=== PATIENT | female | born 1945 | race Caucasian/White ===

== ENCOUNTER → 2017-12-02 | Outpatient (CLI) | payer MEDICARE ==
[~2017-12-02] MED LIST: REGADENOSON 0.4 MG/5 ML SYRINGE IV ONE
--- NOTE | 2017-12-02 11:05 | P.STRESS ---
- Stress Test Note Stress Test Results/Findings: Exam Performed: NM stress lexiscan cardiolite Exam Date: 12/02/17 Reason for Exam: ABN EKG Height: 5 ft 6 in Weight: 90.718 kg Protocol: Yessy Scan Stage: na Duration of Exercise: na Resting Heart Rate: 66 Resting Blood Pressure: 134/86 Maximum Achieved Heart Rate: 66 Maximum Achieved Blood Pressure: 149/70 85% PMHR: na 100% PMHR: na METS: na Technologist Comment: Stress Test Results/Findings: This is a 72-year-old female with history of diabetes. Family history being evaluated for symptoms of chest pain and shortness of breath and also palpitations. Stress data: Baseline EKG showed sinus rhythm. Blood pressure at rest is 134/ 86 with pulse rate of 66. A standard dose of Lexiscan was infused EKGs taken during and after infusion did not reveal any changes of ischemia. Final impression: #1. Negative Lexiscan stress test #2. Report on the nuclear images to begin by the radiologist
--- NOTE | 2017-12-02 11:22 | ECHOF ---
Referral Reason:R94.31 Abnormal ekg MEASUREMENTS -------- HEIGHT: 167.6 cm WEIGHT: 90.7 kg BP: IVSd: 1.2 cm (0.6 - 1.1) LVIDd: 3.3 cm (3.9 - 5.3) LVPWd: 1.4 cm (0.6 - 1.1) IVSs: 1.7 cm LVIDs: 1.9 cm LVPWs: 2.0 cm Ao Diam: 3.2 cm (2.0 - 3.7) AV Cusp: 1.6 cm (1.5 - 2.6) LA Diam: 3.2 cm (2.7 - 3.8) MV EXCURSION: 15.488 mm (> 18.000) MV EF SLOPE: 95 mm/s (70 - 150) EPSS: 0.6 cm MV E Jose Enrique: 0.89 m/s MV DecT: 186 ms MV A Jose Enrique: 1.20 m/s MV E/A Ratio: 0.75 AR PHT: 339 ms RAP: 5.00 mmHg RVSP: 10.65 mmHg FINDINGS -------- Sinus rhythm. This was a technically difficult study with suboptimal views. The left ventricular size is normal. There is mild concentric left ventricular hypertrophy. Overa ll left ventricular systolic function is normal with, an EF between 55 - 60 %. The right ventricle is normal in size and function. The left atrium is normal in size. The right atrium is normal in size. Trace amount of aortic regurgitation. There is trace mitral regurgitation. Trace tricuspid regurgitation present. The right ventricular systolic pressure, as measured by Dopp ler, is 10.65mmHg. Pulmonic valve appears structurally normal. The aortic root size is normal. The pericardium is normal. CONCLUSIONS -------- 1. Sinus rhythm. 2. This was a technically difficult study with suboptimal views. 3. The left ventricular size is normal. 4. There is mild concentric left ventricular hypertrophy. 5. Overall left ventricular systolic function is normal with, an EF between 55 - 60 %. 6. The right ventricle is normal in size and function. 7. The left atrium is normal in size. 8. The right atrium is normal in size. 9. Trace amount of aortic regurgitation. 10. There is trace mitral regurgitation. 11. Trace tricuspid regurgitation present. 12. The right ventricular systolic pressure, as measured by Doppler, is 10.65mmHg. 13. Pulmonic valve appears structurally normal. 14. The aortic root size is normal. 15. The pericardium is normal. LPN PER DIEM: Ramila Reece RDCS
--- NOTE | 2017-12-02 17:01 | NM ---
EXAMINATION TYPE: NM stress lexiscan cardiolite DATE OF EXAM: 12/02/2017 COMPARISON: NONE HISTORY: Abnormal EKG TECHNIQUE: After the intravenous administration of 10.49 mCi Tc 99m Sestamibi - Cardiolite resting S PECT images acquired 45 minutes post injection. The patient received 0.4mg Lexiscan, 25.1 mCi Tc 99m Sestamibi - Stress images obtained [address] injection FINDINGS: Some very subtle diminished radiotracer on stress images may be within the inferior wall. T his is more symmetrical distribution on the resting images. Polar maps do not identify this area. The re is a reported defect on Polar maps at the cardiac apex. This is not identified on the SPECT imagin g Correlate with the patient's reported EKG changes. Ejection fraction of 71% is normal. Some septal wall dyskinesia is present. Some mild dyskinesia card iac apex may be present. IMPRESSION: 1. Polar maps suggest a reversible defect at the cardiac apex not identified on SPECT imaging and SPE CT imaging suggests subtle diminished radiotracer along the inferior wall on stress images not matche d on resting images suggesting very mild stress-induced ischemic change. Correlate with the patient's reported EKG changes. 2. Some dyskinesia of the septal wall is noted. Ejection fraction remains normal at 71%
== END | disposition home or self-care (01) ==
LOC: RADNMMAIN 07:25
PROVIDERS: ATTEND Family Medicine
DX: I51.89 Other ill-defined heart diseases (principal); R94.31 Abnormal electrocardiogram [ECG] [EKG]
CPT/HCPCS: 93017; 78452; C8929; A9500; J2785; Q9950; 93306

== ENCOUNTER → 2018-05-05 | Outpatient (CLI) | payer MEDICARE ==
[2018-05-05 11:23] LABS: HGB 12.8 gm/dL (11.4-16.0); MCH 32.2 pg (25.0-35.0); MCV 100.8 fL (80.0-100.0); Mean Platelet Volume 6.8; Platelet Count 242 k/uL (150-450); RBC 3.97 m/uL (3.80-5.40); RDW 12.6 % (11.5-15.5); WBC 6.8 k/uL (3.8-10.6)
[2018-05-05 11:30] LABS: Anion Gap 11 mmol/L; Blood Urea Nitrogen 20 mg/dL (7-17); Carbon Dioxide 27 mmol/L (22-30); Chloride 102 mmol/L (98-107); Potassium 4.8 mmol/L (3.5-5.1); Sodium 140 mmol/L (137-145)
== END | disposition home or self-care (01) ==
LOC: LABPAT 10:31
PROVIDERS: ATTEND Internal Medicine Cardiovascular Disease
DX: Z01.812 Encounter for preprocedural laboratory examination (principal); E78.2 Mixed hyperlipidemia; E11.9 Type 2 diabetes mellitus without complications; I25.10 Atherosclerotic heart disease of native coronary artery without angina pectoris
CPT/HCPCS: 36415; 80051; 82565; 84520; 85027

== ENCOUNTER → 2018-05-12 | Day surgery (SDC) | payer MEDICARE ==
[2018-05-08 16:14] VITALS: BMI 32.5
[~2018-05-12] MED LIST changes: +ALPRAZolam 0.25 MG TAB PO PRN; +ALPRAZolam 0.5 MG TAB PO PRN; +ASPIRIN 325 MG TAB PO STA; +ATORVASTATIN 80 MG TAB PO STA; +NITROGLYCERIN SL TABS 0.4 MG TAB SUBLINGUAL PRN; -REGADENOSON 0.4 MG/5 ML SYRINGE IV ONE; +SODIUM CHLORIDE 0.9% 1,000 ML IV ONE; +SODIUM CHLORIDE 0.9% 1,000 ML in EMPTY BAG 1 BAG IV ONE
[2018-05-12 09:43] LABS: Glucose,Whole Blood 134 mg/dL (75-99)
[2018-05-12 10:02] VITALS: BP 158/70; PULSE 77; RESP 16; TEMP 97.8
== END | disposition home or self-care (01) ==
LOC: CATHCVL 08:51
PROVIDERS: ATTEND Internal Medicine Cardiovascular Disease
DX: I25.10 Atherosclerotic heart disease of native coronary artery without angina pectoris (principal); E78.2 Mixed hyperlipidemia; E11.9 Type 2 diabetes mellitus without complications; Z53.8 Procedure and treatment not carried out for other reasons

== ENCOUNTER 2018-05-15 07:33 | Day surgery (SDC) | payer MEDICARE ==
[2018-05-12 13:44] VITALS: BMI 32.5
[~2018-05-15 07:33] MED LIST changes: -SODIUM CHLORIDE 0.9% 1,000 ML IV ONE
[2018-05-15 08:05] VITALS: TEMP 97.5
[2018-05-15 08:14] LABS: Glucose,Whole Blood 149 mg/dL (75-99)
[2018-05-15] MEDS ORDERED: fentaNYL (PF) 50 MCG/ML 2 ML AMP ONE (08:37)
[2018-05-15] MEDS ORDERED: LIDOCAINE 1% INJ 10MG/ML (20 ML MDV) ONE (08:37)
[2018-05-15] MEDS ORDERED: VERAPAMIL 2.5 MG/ML 2 ML AMP ONE (08:40)
[2018-05-15] MEDS ORDERED: MIDAZOLAM 2 MG/2 ML VIAL IV ONE (09:00)
[2018-05-15] MEDS: fentaNYL (PF) 50 MCG/ML 2 ML AMP IV ONE ×2 (09:00→09:26)
[2018-05-15] MEDS ORDERED: LIDOCAINE 1% INJ 10MG/ML (20 ML MDV) SQ ONE (09:02)
[2018-05-15] MEDS ORDERED: HEPARIN SODIUM 1,000 UN/ML (10ML VL) ONE (09:05)
[2018-05-15] MEDS: VERAPAMIL SYRINGE (5 MG/10 ML) INTRAARTER ONE ×2 (09:11→09:18)
[2018-05-15] MEDS ORDERED: IOPAMIDOL-370 150ML BTL INJ ONE (09:18)
--- NOTE | 2018-05-15 09:43 | P.CARDCATH ---
Date of Procedure: 05/15/18 Preoperative Diagnosis: This is a 72-year-old female with history of hypercholesterolemia and diabetes who was referred for evaluation of chest pains and the possible positive stress test. Because of risk factors patient is advised to have a cardiac catheterization for definitive diagnosis. Patient and family were explained the risks and benefits of the procedure. Postoperative Diagnosis: Calcified coronary system without any significant obstructive coronary artery disease Procedure(s) Performed: Left heart catheterization without left ventriculography Description of Procedure: HISTORY: This is a 72-year-old female with history of diabetes and hypercholesterolemia who had a stress test which was suggestive of ischemia. Patient is advised to have a cardiac catheterization for definitive diagnosis. CONSENT:I have discussed the risks, benefits and alternative therapies for the above-mentioned procedure and for both sedation/analgesia as well as necessary blood product administration, if indicated, as they pertain to this patient. The patient has indicated understanding and acceptance of the risks and procedures discussed. PROCEDURE: Patient was brought to the lab in a fasting state. Patient was given some IV sedation. The right wrist is infiltrated with lidocaine and right radial artery was entered using Seldinger technique. A 6-[place] catheter was left in place and selective coronary arteriography was performed. Patient tolerated the procedure well. TR band was applied for hemostasis. No immediate complications were noted and patient was transferred to [facility] in a stable condition Conscious Sedation: Versed 1mg Fentanyl 50 g Duration 20minutes HEMODYNAMICS: The aortic pressure is 130/70. Left ankle end-diastolic pressure is about 12-16. There was no gradient across the aortic SELECTIVE CORONARY ARTERIOGRAPHY: LEFT MAIN: short and divides into left anterior descending and circumflex coronary artery immediately. Free of any occlusive disease THE LEFT ANTERIOR DESCENDING CORONARY ARTERY: This is a good caliber vessel giving rise to small diagonal and septal branches. The LAD and branches are free of occlusive disease. The LAD is tortuous in its course. There is heavy calcification of the proximal LAD THE LEFT CIRCUMFLEX AND IS CORONARY ARTERY: This is a good caliber vessel giving rise to good-sized OM branch. The circumflex and branches are free of occlusive disease THE RIGHT CORONARY ARTERY: This is a good caliber vessel and dominant in distribution, giving rise to PDA and PLV. There is also heavy calcification of the proximal and mid right coronary artery. No Sigmund obstructive disease noted LEFT VENTRICULOGRAPHY: On performed FINAL IMPRESSION: Calcified common system especially involving the LAD and right coronary artery. No Sigmund obstructive disease noted PLAN: Maximum medical therapy and risk factor modification PROGNOSIS: Fair
[2018-05-15] MEDS ORDERED: RX INFO: IV CONTRAST WAS GIVEN 1 EACH MISC MISCELLANE PRN (09:54)
[2018-05-15] MEDS ORDERED: SUMAtriptan SUCCINATE 50 MG TAB PO PRN (09:57)
[2018-05-15] MEDS ORDERED: HYDROcodone/APAP 10-325MG 1 EACH TAB PO PRN (09:57)
[2018-05-15] MEDS ORDERED: NYSTAT-TRIAMCIN 100,000-0.1 UNIT/GM-% CREAM 30 GM TUBE TOPICAL PRN (09:57)
[2018-05-15] MEDS ORDERED: SODIUM CHLORIDE 0.9% 1,000 ML IV SCH (10:00)
[2018-05-15 11:28] VITALS: BP 128/66; PULSE 60; RESP 16
[2018-05-15] MEDS ORDERED: NYSTATIN 100,000UNIT/GM CREAM 30 GM TUBE TOPICAL PRN (13:14)
[2018-05-15] MEDS ORDERED: TRIAMCINOLONE 0.1% CREAM 80 GM TUBE TOPICAL PRN (13:15)
[2018-05-15] MEDS ORDERED: ASPIRIN 81 MG PO SCH (21:00)
[2018-05-16] MEDS ORDERED: CHOLECALCIFEROL 1,000 UNIT TAB PO SCH (09:00)
[2018-05-16] MEDS ORDERED: CALCIUM CARB-VIT D 500MG-200UN 1 EACH TAB PO SCH (09:00)
[2018-05-16] MEDS ORDERED: MULTIVITAMINS, THERA 1 EACH TAB PO SCH (12:00)
== END 2018-05-15 13:27 | disposition home or self-care (01) ==
LOC: CATHCVL 07:33
PROVIDERS: ATTEND Internal Medicine Cardiovascular Disease
DX: I25.10 Atherosclerotic heart disease of native coronary artery without angina pectoris (principal); I25.84 Coronary atherosclerosis due to calcified coronary lesion; I10 Essential (primary) hypertension; E11.9 Type 2 diabetes mellitus without complications; E78.00 Pure hypercholesterolemia, unspecified; E78.5 Hyperlipidemia, unspecified; Z79.84 Long term (current) use of oral hypoglycemic drugs; Z79.82 Long term (current) use of aspirin; Z79.899 Other long term (current) drug therapy; Z88.0 Allergy status to penicillin; Z91.048 Other nonmedicinal substance allergy status
CPT/HCPCS: 93458; C1769; C1894; J2250; J2001; J3010; J1644; Q9967

== ENCOUNTER 2020-07-21 07:50 | Emergency (ER) | payer MEDICARE ==
[2020-07-21 07:54] VITALS: BP 135/68; PULSE 100; RESP 20; TEMP 97.7
[2020-07-21] MEDS ORDERED: HYDROmorphone 1 MG/ML 1 ML SYRINGE IM STA (08:17)
[2020-07-21] MEDS ORDERED: methylPREDNISolone SOD SUCCI 125 MG/2 ML VIAL IM ONE (08:17)
--- NOTE | 2020-07-21 08:21 | ED ---
General Adult HPI - General Chief complaint: Extremity Problem,Nontraumatic Stated complaint: trouble walking Time Seen by Provider: 07/21/20 07:50 Source: patient, RN notes reviewed, old records reviewed Mode of arrival: wheelchair Limitations: no limitations - History of Present Illness Initial comments: This is a 74-year-old female who presents emergency Department complaining of right sided back pain. Patient's pain radiates from the back always down to the anterior aspect of the leg. Patient states it worsens with movement. Patient states there is no numbness associated with it. Patient states been ongoing for 4 weeks. Patient states she's been to her doctor for times. Patient states there's been no dysuria hematuria urinary frequency. Patient denies any urinary incontinence or urinary retention. Patient denies any recent injury. Patient denies any other symptoms at this time. Patient denies any fever chills or cough. - Related Data Home Medications Medication Instructions Recorded Confirmed Rizatriptan Benzoate [Rizatriptan] 10 mg PO BID PRN 02/15/14 07/21/20 metFORMIN HCL 1,000 mg PO BID 02/15/14 07/21/20 HYDROcodone/APAP 10-325MG [[place] 1 tab PO Q6H PRN 05/08/18 07/21/20 10-325] Atorvastatin [Lipitor] 40 mg PO DAILY 07/21/20 07/21/20 Gabapentin 800 mg PO QID 07/21/20 07/21/20 Latanoprost/Pf [Latanoprost 0.005% 1 drop BOTH EYES HS 07/21/20 07/21/20 Eye Drop] Previous Rx's Medication Instructions Recorded predniSONE [Deltasone] 40 mg PO DAILY #8 tab 07/21/20 Allergies Allergy/AdvReac Type Severity Reaction Status Date / Time Penicillins Allergy Rash/Hives Verified 07/21/20 08:51 SURGICAL TAPE Allergy SKIN Uncoded 07/21/20 07:54 BLISTERS Review of Systems ROS Statement: Those systems with pertinent positive or pertinent negative responses have been documented in the HPI. ROS Other: All systems not noted in ROS Statement are negative. Past Medical History Past Medical History: Diabetes Mellitus Additional Past Medical History / Comment(s): DIARRHEA FOR APPROX 1 YR,STEROIDS W/IN 3 MOS History of Any Multi-Drug Resistant Organisms: None Reported Past Surgical History: Hysterectomy, Tubal Ligation Past Anesthesia/Blood Transfusion Reactions: No Reported Reaction Past Psychological History: No Psychological Hx Reported Smoking Status: Never smoker Past Alcohol Use History: None Reported Past Drug Use History: None Reported General Exam - General Exam Comments Initial Comments: GENERAL: Patient is well-developed and well-nourished. Patient is nontoxic and well- hydrated and is in no acute distress. ENT: Neck is soft and supple. No significant lymphadenopathy is noted. Oropharynx is clear. Moist mucous membranes. Neck has full range of motion without eliciting any pain. EYES: The sclera were anicteric and conjunctiva were pink and moist. Extraocular movements were intact and pupils were equal round and reactive to light. Eyelids were unremarkable. PULMONARY: Unlabored respirations. Good breath sounds bilaterally. No audible rales rhonchi or wheezing was noted. CARDIOVASCULAR: There is a regular rate and rhythm without any murmurs gallops or rubs. ABDOMEN: Soft and nontender with normal bowel sounds. SKIN: Skin is clear with no lesions or rashes and otherwise unremarkable. NEUROLOGIC: Patient is alert and oriented x3. Cranial nerves II through XII are grossly intact. Motor and sensory are also intact. Normal speech, volume and content. Symmetrical smile. Straight leg test is negative on the left but positive at 10 on the right MUSCULOSKELETAL: Normal extremities with adequate strength and full range of motion. No lower extremity swelling or edema. No calf tenderness. LYMPHATICS: No significant lymphadenopathy is noted PSYCHIATRIC: Normal psychiatric evaluation. Limitations: no limitations Course Vital Signs 07/21/20 07:51 Temperature 97.7 F Pulse Rate 100 Respiratory 20 Rate Blood Pressure 135/68 O2 Sat by Pulse 98 Oximetry Medical Decision Making - Medical Decision Making X-ray lumbosacral spine shows no acute abnormality. Patient received Dilaudid and Solu-Medrol in the emergency department and was feeling better. Disposition Clinical Impression: Sciatica Disposition: HOME SELF-CARE Condition: Good Instructions (If sedation given, give patient instructions): Sciatica (ED) Prescriptions: predniSONE [Deltasone] 40 mg PO DAILY #8 tab Is patient prescribed a controlled substance at d/c from ED?: No Referrals: Cesar Blue MD [Primary Care Provider] - 1-2 days Time of Disposition: 09:44
--- NOTE | 2020-07-21 08:48 | XR ---
Lumbosacral spine HISTORY: Low back pain 5 views lumbosacral spine There is a spinal curvature present. Lumbar vertebral bodies show preserved height and bone mineraliz ation is mildly reduced. There is no evident spondylolysis. Anterolisthesis grade 1 at L4-5, L3-4. Th ere is loss of disc height at intervertebral levels. Multilevel spondylosis is present. Sclerosis is present in the posterior elements of the lower lumbar spine. Minimal retrolisthesis grade 1 L5-S1. At herosclerotic vascular calcifications are noted incidentally. IMPRESSION: Degenerative disc disease, facet arthropathy, spondylolisthesis, osteopenia. Spinal curva ture.
== END 2020-07-21 09:49 | disposition home or self-care (01) ==
LOC: EC 07:50
DX: M54.41 Lumbago with sciatica, right side (principal); E11.9 Type 2 diabetes mellitus without complications; Z79.84 Long term (current) use of oral hypoglycemic drugs; Z88.0 Allergy status to penicillin
CPT/HCPCS: 72110; 99283; 96372 ×2; J2930; J1170

== ENCOUNTER → 2020-07-25 | Outpatient (CLI) | payer MEDICARE ==
--- NOTE | 2020-07-25 08:55 | MR ---
EXAMINATION TYPE: MR lumbar spine wo con DATE OF EXAM: 07/25/2020 COMPARISON: Plain film 07/21/2020 HISTORY: Very bad pain that travels down legs x9 months TECHNIQUE: Multiplanar, multisequence images of the lumbar spine were acquired. L1-L2: Right posterior paracentral disc bulge causes some anterolateral mass effect on the thecal sac , the soft tissue posterior to L2 vertebral body may extend from this disc space. No significant fora makenna encroachment. There is some hypertrophic changes of the facets. L2-L3: Hypertrophic changes of the facets causes posterior lateral mass effect on the thecal sac. The re is likely a synovial cyst on the left, axial image #16, posterior to the L2 vertebral body there i s right sided eccentric soft tissue signal, sagittal image #9, axial image 19 and 20, 21 causing righ t lateral mass effect on the thecal sac and extending towards the right-sided neural foramen, abnorma lity measures approximately 16 mm in cephalad to caudal dimension by 12 mm and transverse dimension a nd 7 mm in AP dimension. Right-sided foraminal encroachment is contributed by the listhesis. L3-L4: Listhesis contributes to cause foraminal encroachment bilaterally. Minimal posterior disc bulg e contacts anterior thecal sac and causes some mild mass effect. There is significant facet arthropat hy, hypertrophic changes causes posterior lateral mass effect on the thecal sac as well as resulting trefoil appearance of the thecal sac. L4-L5: Posterior disc bulge causes mild anterior mass effect on the thecal sac. There is likely conta ct with the proximal L5 nerve root on the right. No definite foraminal encroachment or spinal stenosi s. There are facet arthropathy changes with hypertrophy ligamentum flavum causing posterior lateral m ass effect on the thecal sac. L5-S1: There is a posterior disc bulge possibly contacting the anterior thecal sac, proximal S1 nerve root in the right posterior paracentral location, some facet arthropathy changes are present. There is no significant spinal stenosis. No definite foraminal encroachment. Lumbar segments are intact. There is an anterolisthesis grade 1 L3-4 and L2-3, spinal curvature is ag ain noted. There is multilevel spondylosis, endplate discogenic marrow signal change. Loss of disc he ight signal is present intervertebral levels. Lumbar vertebral bodies show preserved height. Probable parapelvic cysts are present within the kidneys. No paraspinal masses are identified. Conus medulla ris has a normal appearance. IMPRESSION: Multilevel degenerative disc disease, spondylolisthesis, foraminal encroachment. Suspect there may be a sequestered disc fragment posterior to the L2 vertebral body possibly extending from the L1-2 disc space, correlate for right L2 radiculopathy. Multilevel facet arthropathy and additional findings ab ove.
== END | disposition home or self-care (01) ==
LOC: RADMRIMAIN 07:35
PROVIDERS: ATTEND Family Medicine
DX: M51.16 Intervertebral disc disorders with radiculopathy, lumbar region (principal); M99.73 Connective tissue and disc stenosis of intervertebral foramina of lumbar region; M47.26 Other spondylosis with radiculopathy, lumbar region; M43.16 Spondylolisthesis, lumbar region
CPT/HCPCS: 72148

== ENCOUNTER 2021-05-27 20:16 | Emergency (ER) | payer MEDICARE ==
[2021-05-27] MEDS ORDERED: OXYMETAZOLINE 0.05% NASL SPRAY 1 SPRAY BOTTLE NASAL STA (23:46)
--- NOTE | 2021-05-27 23:49 | ED ---
ENT HPI - General Stated complaint: Coughing up blood Time Seen by Provider: 05/27/21 23:36 Source: RN notes reviewed - History of Present Illness Initial comments: This is a pleasant 75-year-old female that states that she had a nosebleed and then was clearing some blood out of her throat as well. Nosebleed started e arlier today. Patient states that she was started on Xarelto yesterday. Both the patient and her stated that this was given to her for hip pain. The patient saw her physician at the office and was given a shot of pain medication and steroids for hip pain. She then was put on the blood thinner. Patient has no history of irregular heartbeat or DVT/PE. Patient states that she recently h ad a recurrence of the nosebleed but now it stopped. Patient also stating that she feels somewhat fatigued since all of this happened. Denying any chest pain or shortness of breath. Positive for general weakness, positive for epistaxis, No headache, no fever or chills, no changes in vision or hearing, no sore throat or difficulty with speech, no neck pain, no chest pain or shortness of breath, no abdominal pain, no nausea or vomiting, no changes in urination or bowel movements, no numbness or tingling, no extremity pain, no skin rashes or lesions. - Related Data Home Medications Medication Instructions Recorded Confirmed Rizatriptan Benzoate [Rizatriptan] 10 mg PO BID PRN 02/15/14 07/21/20 metFORMIN HCL 1,000 mg PO BID 02/15/14 07/21/20 HYDROcodone/APAP 10-325MG [[place] 1 tab PO Q6H PRN 05/08/18 07/21/20 10-325] Atorvastatin [Lipitor] 40 mg PO DAILY 07/21/20 07/21/20 Gabapentin 800 mg PO QID 07/21/20 07/21/20 Latanoprost/Pf [Latanoprost 0.005% 1 drop BOTH EYES HS 07/21/20 07/21/20 Eye Drop] Previous Rx's Medication Instructions Recorded predniSONE [Deltasone] 40 mg PO DAILY #8 tab 07/21/20 Allergies Allergy/AdvReac Type Severity Reaction Status Date / Time Penicillins Allergy Rash/Hives Verified 07/21/20 08:51 SURGICAL TAPE Allergy SKIN Uncoded 07/21/20 07:54 BLISTERS Review of Systems ROS Statement: Those systems with pertinent positive or pertinent negative responses have been documented in the HPI. ROS Other: All systems not noted in ROS Statement are negative. Past Medical History Past Medical History: Diabetes Mellitus Additional Past Medical History / Comment(s): DIARRHEA FOR APPROX 1 YR,STEROIDS W/IN 3 MOS History of Any Multi-Drug Resistant Organisms: None Reported Past Surgical History: Hysterectomy, Tubal Ligation Past Anesthesia/Blood Transfusion Reactions: No Reported Reaction Past Psychological History: No Psychological Hx Reported Smoking Status: Never smoker Past Alcohol Use History: None Reported Past Drug Use History: None Reported General Exam - General Exam Comments Initial Comments: Obese elderly female in no significant distress at the time I'm entering the room. Patient does not appear to be ill or toxic. General appearance: alert, in no apparent distress Head exam: Present: atraumatic, normocephalic, normal inspection Eye exam: Present: normal appearance, PERRL, EOMI. Absent: scleral icterus, conjunctival injection, periorbital swelling ENT exam: Present: normal exam, normal oropharynx, mucous membranes moist, TM's normal bilaterally, normal external ear exam, other (Patient has evidence of re cent epistaxis from the left nostril. No active bleeding noted.) Neck exam: Present: normal inspection. Absent: tenderness, meningismus, lymphadenopathy Respiratory exam: Present: normal lung sounds bilaterally. Absent: respiratory distress, wheezes, rales, rhonchi, stridor Cardiovascular Exam: Present: regular rate, normal rhythm, normal heart sounds. Absent: systolic murmur, diastolic murmur, rubs, gallop, clicks GI/Abdominal exam: Present: soft, normal bowel sounds. Absent: distended, te nderness, guarding, rebound, rigid Extremities exam: Present: normal inspection, full ROM, normal capillary refill. Absent: tenderness, pedal edema, joint swelling, calf tenderness Back exam: Present: normal inspection Neurological exam: Present: alert, oriented X3, CN II-XII intact Psychiatric exam: Present: normal affect, normal mood Skin exam: Present: warm, dry, intact, normal color. Absent: rash Course - Reevaluation(s) Reevaluation #1: 05/28/21 0230 Medical record is reviewed Symptoms are improved here in the emergency department Patient is informed of results and questions answered Patient in no distress Medical Decision Making - Medical Decision Making Patient was observed, patient had no recurrent bleeding. Patient symptomology appears to be from a left-sided epistaxis. Patient likely had to clear her throat. There was no abdominal pain. Abdomen soft, benign, nontender. Patient no bleeding here. Hemoglobin is normal. Patient was hemodynamically stable. Patient had no bleeding. Patient was given Afrin nasal spray, 2 sprays each naris. Patient had no other bleeding sites. Abdomen was soft and benign. Patient was eager to be discharged. I did discuss treatment plan with the patie nt to include avoidance of manipulating her nose. Patient again had evidence of left-sided epistaxis which was nonbleeding here in the ER. Only dried blood at the anterior nasal septum area. Patient hold the blood thinner until she contacts her regular physician tomorrow. The case was discussed in detail with ED attending physician. Presentation, findings, treatment plan discussed in detail. - Lab Data Result diagrams: 05/27/21 00:00 05/27/21 00:00 Lab Results 05/27/21 05/27/21 05/27/21 Range/Units 00:00 00:00 00:00 WBC 7.4 (3.8-10.6) k/uL RBC 4.13 (3.80-5.40) m/uL Hgb 13.9 (11.4-16.0) gm/dL Hct 42.3 (34.0-46.0) % MCV 102.4 H (80.0-100.0) fL MCH 33.5 (25.0-35.0) pg MCHC 32.8 (31.0-37.0) g/dL RDW 12.2 (11.5-15.5) % Plt Count 254 (150-450) k/uL MPV 6.9 Neutrophils % 60 % Lymphocytes % 31 % Monocytes % 6 % Eosinophils % 1 % Basophils % 1 % Neutrophils # 4.5 (1.3-7.7) k/uL Lymphocytes # 2.3 (1.0-4.8) k/uL Monocytes # 0.4 (0-1.0) k/uL Eosinophils # 0.1 (0-0.7) k/uL Basophils # 0.1 (0-0.2) k/uL PT 11.0 (9.0-12.0) sec INR 1.0 (<1.2) APTT 22.9 (22.0-30.0) sec Sodium 132 L (137-145) mmol/L Potassium 4.4 (3.5-5.1) mmol/L Chloride 100 (98-107) mmol/L Carbon Dioxide 25 (22-30) mmol/L Anion Gap 7 mmol/L BUN 27 H (7-17) mg/dL Creatinine 0.88 (0.52-1.04) mg/dL Est GFR (CKD-EPI)AfAm 74 (>60 ml/min/1.73 sqM) Est GFR (CKD-EPI)NonAf 64 (>60 ml/min/1.73 sqM) Glucose 360 H (74-99) mg/dL Calcium 9.1 (8.4-10.2) mg/dL Total Bilirubin 0.6 (0.2-1.3) mg/dL AST 26 (14-36) U/L ALT 18 (4-34) U/L Alkaline Phosphatase 123 (38-126) U/L Total Protein 6.7 (6.3-8.2) g/dL Albumin 3.7 (3.5-5.0) g/dL Blood Type Blood Type Confirm Blood Type Recheck Bld Type Recheck Status Antibody Screen Spec Expiration Date 05/28/21 05/28/21 Range/Units 00:00 00:00 WBC (3.8-10.6) k/uL RBC (3.80-5.40) m/uL Hgb (11.4-16.0) gm/dL Hct (34.0-46.0) % MCV (80.0-100.0) fL MCH (25.0-35.0) pg MCHC (31.0-37.0) g/dL RDW (11.5-15.5) % Plt Count (150-450) k/uL MPV Neutrophils % % Lymphocytes % % Monocytes % % Eosinophils % % Basophils % % Neutrophils # (1.3-7.7) k/uL Lymphocytes # (1.0-4.8) k/uL Monocytes # (0-1.0) k/uL Eosinophils # (0-0.7) k/uL Basophils # (0-0.2) k/uL PT (9.0-12.0) sec INR (<1.2) APTT (22.0-30.0) sec Sodium (137-145) mmol/L Potassium (3.5-5.1) mmol/L Chloride (98-107) mmol/L Carbon Dioxide (22-30) mmol/L Anion Gap mmol/L BUN (7-17) mg/dL Creatinine (0.52-1.04) mg/dL Est GFR (CKD-EPI)AfAm (>60 ml/min/1.73 sqM) Est GFR (CKD-EPI)NonAf (>60 ml/min/1.73 sqM) Glucose (74-99) mg/dL Calcium (8.4-10.2) mg/dL Total Bilirubin (0.2-1.3) mg/dL AST (14-36) U/L ALT (4-34) U/L Alkaline Phosphatase (38-126) U/L Total Protein (6.3-8.2) g/dL Albumin (3.5-5.0) g/dL Blood Type O Positive Blood Type Confirm O Positive Blood Type Recheck No Previous Record Bld Type Recheck Status CABO Indicated Antibody Screen NEGATIVE Spec Expiration Date 05/31/20212299 Disposition Clinical Impression: Epistaxis Disposition: HOME SELF-CARE Condition: Good Instructions (If sedation given, give patient instructions): Nosebleed (ED) Additional Instructions: Follow-up with your regular physician as directed. Return to the ER immediately if any symptoms worsen, new symptoms arise, or any other problems develop. Call your regular doctor tomorrow to discuss the Xarelto. Hold the medication until you discuss it with your family care physician. Is patient prescribed a controlled substance at d/c from ED?: No Referrals: Cesar Bule MD [Primary Care Provider] - 1-2 days Time of Disposition: 02:14
[2021-05-28 00:23] LABS: Basophils # (A) 0.1 k/uL (0-0.2); Basophils % (A) 1 %; Eosinophils # (A) 0.1 k/uL (0-0.7); Eosinophils % (A) 1 %; HCT 42.3 % (34.0-46.0); HGB 13.9 gm/dL (11.4-16.0); Lymphocytes # (A) 2.3 k/uL (1.0-4.8); Lymphocytes % (A) 31 %; MCH 33.5 pg (25.0-35.0); MCHC 32.8 g/dL (31.0-37.0); MCV 102.4 fL (80.0-100.0); Mean Platelet Volume 6.9; Monocytes # (A) 0.4 k/uL (0-1.0); Monocytes % (A) 6 %; Neutrophils # (A) 4.5 k/uL (1.3-7.7); Neutrophils % (A) 60 %; Platelet Count 254 k/uL (150-450); RBC 4.13 m/uL (3.80-5.40); RDW 12.2 % (11.5-15.5); WBC 7.4 k/uL (3.8-10.6)
[2021-05-28 00:39] LABS: Partial Thromboplastin Time 22.9 sec (22.0-30.0)
[2021-05-28 00:40] LABS: Albumin 3.7 g/dL (3.5-5.0); Calcium 9.1 mg/dL (8.4-10.2); Potassium 4.4 mmol/L (3.5-5.1); Total Bilirubin 0.6 mg/dL (0.2-1.3); Total Protein 6.7 g/dL (6.3-8.2)
== END 2021-05-28 02:27 | disposition home or self-care (01) ==
LOC: EC 20:16
DX: R04.0 Epistaxis (principal); E11.9 Type 2 diabetes mellitus without complications; Z88.0 Allergy status to penicillin; Z91.09 Other allergy status, other than to drugs and biological substances; Z79.84 Long term (current) use of oral hypoglycemic drugs
CPT/HCPCS: 36415; 80053; 85025; 85610; 85730; 86850; 86900; 86901; 99283